=== PATIENT | female | born 1995 | race Two or more races ===

== ENCOUNTER 2017-04-30 21:48 | Emergency (ER) | payer SELFPAY ==
[~2017-04-30] VITALS: Ht 167.6 cm; Wt 76.0 kg
[2017-05-01 01:31] LABS: BASOPHILS % 0.3 % (0.0-2.0); EOSINOPHILS % 1.7 % (0.0-5.0); HEMATOCRIT. 32.2 % (36.0-48.0); LYMPHOCYTES % 30.4 % (20.0-50.0); MEAN CORPUSCULAR HEMOGLOBIN 29.8 pg (28.0-32.0); MEAN CORPUSCULAR VOLUME 86.9 fL (81.0-99.0); MEAN PLATELET VOLUME 8.5 fl (7.4-10.4); MONOCYTES % 6.1 % (2.0-8.0); NEUTROPHILS % 61.5 % (40.0-76.0); PLATELET 233 x1000/uL (130-400); RED CELL DISTRIBUTION WIDTH 13.4 % (11.6-14.6)
[2017-05-01 01:37] LABS: CHLORIDE 102 mEq/L (98-107)
[2017-05-01 01:53] LABS: CARBON DIOXIDE 22 mEq/L (21-32)
[2017-05-01 02:02] LABS: B-HCG QUANTITATIVE 63665 mIU/mL (<3)
[2017-05-01 03:55] VITALS: BP 115/70
== END 2017-05-01 03:49 | disposition home or self-care (01) ==
LOC: ER 22:50
DX: O20.0 Threatened abortion (principal); Z3A.11 11 weeks gestation of pregnancy; Z90.49 Acquired absence of other specified parts of digestive tract
CPT/HCPCS: 36415; 76801; 76817; 80048; 84702; 85025; 86850; 86900; 86901; 99285; Z7610

== ENCOUNTER 2018-01-05 19:20 | Inpatient (IN) | payer OTHER, MEDICAID ==
[~2018-01-05] VITALS: Ht 167.6 cm; Wt 74.8 kg
[2018-01-05] MEDS ORDERED: ACETAMINOPHEN 325MG TABLET PO STA (19:50)
[2018-01-05] MEDS ORDERED: MORPHINE SULFATE 4 MG/ML CPJ (NOT FOR IM USE) IV STA (19:50)
[2018-01-05] MEDS ORDERED: ONDANSETRON HCL 4MG/2ML VIAL IV STA (19:50)
[2018-01-05] MEDS ORDERED: SODIUM CHLORIDE 0.9% 1000ML BAG (SEPSIS BOLUS) IV ONE ×2 (20:00→21:00)
[2018-01-05 20:24] LABS: HEMATOCRIT. 33.5 % (36.0-48.0); HEMOGLOBIN. 11.2 g/dL (12.0-16.0); MEAN CORPUSCULAR HEMOGLOBIN 29.1 pg (28.0-32.0); MEAN CORPUSCULAR VOLUME 86.9 fL (81.0-99.0); MEAN PLATELET VOLUME 9.5 fl (7.4-10.4); PLATELET 240 x1000/uL (130-400); RED BLOOD CELL COUNT 3.86 mill/uL (4.2-5.4); RED CELL DISTRIBUTION WIDTH 13.2 % (11.6-14.6)
[2018-01-05 20:25] LABS: INR 1.1; PROTHROMBIN TIME 11.6 sec (9.4-11.6)
[2018-01-05 20:30] LABS: CHLORIDE 100 mEq/L (98-107)
[2018-01-05 20:35] LABS: B-HCG QUANTITATIVE < 1 mIU/mL (<3)
[2018-01-05 20:47] LABS: CLARITY URINE TURBID (CLEAR); COLOR URINE YELLOW (YELLOW); KETONES URINE TRACE (NEGATIVE); LEUKOCYTE ESTERASE URINE 2+ (NEGATIVE); NITRITE URINE NEGATIVE (NEGATIVE); OCCULT BLOOD URINE 3+ (NEGATIVE); PH URINE 5.5 (4.5-8.0); PROTEIN URINE 2+ (NEGATIVE); SPECIFIC GRAVITY URINE 1.014 (1.005-1.030); UROBILINOGEN URINE 0.2 E.U./dL (0.2-1.0)
[2018-01-05 21:00] LABS: PLATELET ESTIMATE NORMAL
[2018-01-05] MEDS ORDERED: PIPERACILLIN/TAZ 3.375G PREMIX 50 ML IV ONE (21:00)
[2018-01-05] MEDS ORDERED: VANCOMYCIN 1 G PREMIX 200 ML IV ONE (21:00)
[2018-01-05] MEDS ORDERED: IOHEXOL-300 100 ML BOTTLE ONE (22:27)
[2018-01-06] MEDS ORDERED: DIPHENHYDRAMINE 50MG/ML VIAL IV ONE
[2018-01-06] MEDS: ACETAMINOPHEN 325MG TABLET PO PRN ×3 (01:45→18:00)
[2018-01-06] MEDS: DEXT 5%/0.45% NACL KCL 40MEQ/L 1,000 ML IV SCH ×3 (03:41→18:08)
[2018-01-06 04:00] VITALS: BP 107/63
[2018-01-06] MEDS ORDERED: MAGNESIUM/ALUMINUM HYDROXIDE/SIMETHICONE 30ML UDC PO PRN (04:56)
[2018-01-06] MEDS ORDERED: DIPHENHYDRAMINE 50MG/ML VIAL IV PRN (04:56)
[2018-01-06] MEDS: MORPHINE SULFATE 4 MG/ML CPJ (NOT FOR IM USE) IV PRN ×2 (05:23→17:20)
[2018-01-06] MEDS ORDERED: GENTAMICIN SULFATE 120 MG in SODIUM CHLORIDE 0.9% 100 ML IV SCH (06:00)
[2018-01-06] MEDS ORDERED: CEFTRIAXONE 1 G PREMIX 50 ML IV SCH (06:00)
[2018-01-06] MEDS ORDERED: MAGNESIUM 2 G PREMIX 50 ML IV SCH (06:00)
[2018-01-06 07:19] VITALS: BP 86/46
[2018-01-06 07:24] VITALS: BP 90/49
[2018-01-06] MEDS: ONDANSETRON HCL 4MG/2ML VIAL IV PRN ×2 (09:57→17:41)
[2018-01-06 12:00] VITALS: BP 95/47
[2018-01-06 15:40] VITALS: BP 106/69
[2018-01-06] MEDS: GENTAMICIN SULFATE 160 MG in SODIUM CHLORIDE 0.9% 100 ML IV SCH (17:10)
[2018-01-06 20:00] VITALS: BP 99/74
[2018-01-07] VITALS (8 sets, daily range): BP systolic 89–119; BP diastolic 53–80
[2018-01-07] MEDS: MORPHINE SULFATE 4 MG/ML CPJ (NOT FOR IM USE) IV PRN (02:09)
[2018-01-07] MEDS: DEXT 5%/0.45% NACL KCL 40MEQ/L 1,000 ML IV SCH ×2 (02:25→18:02)
[2018-01-07] MEDS: GENTAMICIN SULFATE 160 MG in SODIUM CHLORIDE 0.9% 100 ML IV SCH (05:47)
[2018-01-07] MEDS ORDERED: CEFTRIAXONE 1 G PREMIX 50 ML IV SCH (06:00)
[2018-01-07 07:16] LABS: BASOPHILS % 0.2 % (0.0-2.0); EOSINOPHILS % 0.1 % (0.0-5.0); HEMATOCRIT. 28.7 % (36.0-48.0); HEMOGLOBIN. 9.7 g/dL (12.0-16.0); LYMPHOCYTES % 9.5 % (20.0-50.0); MEAN CORPUSCULAR HEMOGLOBIN 29.5 pg (28.0-32.0); MEAN CORPUSCULAR VOLUME 87.6 fL (81.0-99.0); MEAN PLATELET VOLUME 9.9 fl (7.4-10.4); MONOCYTES % 7.8 % (2.0-8.0); NEUTROPHILS % 82.4 % (40.0-76.0); PLATELET 238 x1000/uL (130-400); RED BLOOD CELL COUNT 3.28 mill/uL (4.2-5.4); RED CELL DISTRIBUTION WIDTH 13.6 % (11.6-14.6)
[2018-01-07 08:23] LABS: CHLORIDE 107 mEq/L (98-107)
[2018-01-07 08:56] LABS: PHOSPHORUS 0.6 mg/dL (2.5-4.9)
[2018-01-07] MEDS ORDERED: SODIUM PHOS,M-BASIC-D-BASIC 30 MM in DEXT 5% WATER 500 ML IV SCH (11:00)
[2018-01-07] MEDS: ACETAMINOPHEN 325MG TABLET PO PRN (15:13)
== END 2018-01-07 22:45 | disposition short-term general hospital (02) | DRG 871 ==
LOC: ER 19:31 → 8WST 22:59 → CANRESERV 23:31 → ENRESERV 23:31 → CANBEDREQ 01-06 00:20
PROVIDERS: ADMIT Internal Medicine; ATTEND Internal Medicine
DX: A41.9 Sepsis, unspecified organism (principal); E43 Unspecified severe protein-calorie malnutrition; N10 Acute pyelonephritis; R00.0 Tachycardia, unspecified; E87.6 Hypokalemia; E83.39 Other disorders of phosphorus metabolism; Z80.3 Family history of malignant neoplasm of breast; Z90.49 Acquired absence of other specified parts of digestive tract; Z68.26 Body mass index [BMI] 26.0-26.9, adult
CPT/HCPCS: 36415; 71045; 72146; 72148; 74177; 76830; 76856; 80048; 80051; 80053; 81003; 81025; 83605; 83690; 83735; 84100; 84702; 85025; 85610; 87040; 87077; 87086; 87186; 87493; 93005; 96361; 96365; 96367; 96375; 99291; J0696; J1200; J1580; J2270; J2405; J2543; J3370; J3475; J3490; J7030; J7050; J7060; Q9967

== ENCOUNTER 2021-09-24 08:21 | Emergency (ER) | payer OTHER ==
[~2021-09-24] VITALS: Ht 165.1 cm; Wt 74.0 kg
[2021-09-24] MEDS ORDERED: ONDANSETRON HCL 4MG/2ML INJ IV STA (08:42)
[2021-09-24] MEDS ORDERED: MORPHINE SULFATE 4 MG/ML CPJ (NOT FOR IM USE) IV STA (08:42)
[2021-09-24] MEDS ORDERED: LORAZEPAM 2MG/ML CPJ IV ONE (08:45)
[2021-09-24] MEDS ORDERED: SODIUM CHLORIDE 0.9% 1,000 ML IV ONE (08:45)
[2021-09-24 09:13] LABS: BASOPHILS % 0.4 % (0.0-2.0); EOSINOPHILS % 0.1 % (0.0-5.0); HEMOGLOBIN. 13.2 g/dL (12.0-16.0); LYMPHOCYTES % 10.2 % (20.0-50.0); MEAN CORPUSCULAR HEMOGLOBIN 29.1 pg (28.0-32.0); MEAN CORPUSCULAR VOLUME 88.4 fL (81.0-99.0); MEAN PLATELET VOLUME 8.3 fl (7.4-10.4); MONOCYTES % 1.8 % (2.0-8.0); NEUTROPHILS % 87.5 % (40.0-76.0); PLATELET 270 x1000/uL (130-400); RED BLOOD CELL COUNT 4.52 mill/uL (4.2-5.4)
[2021-09-24 09:19] LABS: CHLORIDE 111 mEq/L (98-107)
[2021-09-24 09:20] LABS: HCG SCREEN NEGATIVE
[2021-09-24 09:24] LABS: ETHANOL BLOOD 41 mg/dL
[2021-09-24 10:39] LABS: CLARITY URINE CLEAR (CLEAR); COLOR URINE YELLOW (YELLOW); KETONES URINE 2+ (NEGATIVE); LEUKOCYTE ESTERASE URINE NEGATIVE (NEGATIVE); NITRITE URINE NEGATIVE (NEGATIVE); OCCULT BLOOD URINE NEGATIVE (NEGATIVE); PH URINE 5.5 (4.5-8.0); PROTEIN URINE NEGATIVE (NEGATIVE); SPECIFIC GRAVITY URINE 1.022 (1.005-1.030); UROBILINOGEN URINE 0.2 E.U./dL (0.2-1.0)
[2021-09-24] MEDS ORDERED: ONDA4TAB11 PO (11:17)
[2021-09-24] MEDS ORDERED: OMEP20CA14 MT (11:17)
[2021-09-24 11:19] LABS: *AMPHETAMINES SCREEN URINE NEGATIVE (NEGATIVE); *BARBITURATES SCREEN URINE NEGATIVE (NEGATIVE); *BENZODIAZEPINES SCREEN URINE NEGATIVE (NEGATIVE); *COCAINE SCREEN URINE NEGATIVE (NEGATIVE); METHADONE URINE SCREEN NEGATIVE (NEGATIVE)
[2021-09-24 11:22] LABS: PHENCYCLIDINE URINE SCREEN NEGATIVE (NEGATIVE)
[2021-09-24 11:25] LABS: OPIATES URINE SCREEN PRESUMTIVE POSITIVE (NEGATIVE)
[2021-09-24 11:26] LABS: CANNABINOID URINE SCREEN PRESUMTIVE POSITIVE (NEGATIVE)
[2021-09-24 12:40] VITALS: BP 100/54
== END 2021-09-24 12:54 | disposition home or self-care (01) ==
LOC: ER 08:43 → CANBEDREQ 11:54 → ER 12:54
DX: R10.13 Epigastric pain (principal); F10.129 Alcohol abuse with intoxication, unspecified; R11.10 Vomiting, unspecified; Y90.2 Blood alcohol level of 40-59 mg/100 ml; Z90.49 Acquired absence of other specified parts of digestive tract; Z88.0 Allergy status to penicillin
CPT/HCPCS: 36415; 71045; 80053; 80305; 80320; 81003; 83690; 84703; 85025; 93005; 96361; 96374; 96375; 99285; J2270; J2405; J7030; G0480

== ENCOUNTER 2024-07-28 07:53 | Emergency (ER) | payer MEDICAID, OTHER ==
[~2024-07-28] VITALS: Ht 165.1 cm; Wt 70.0 kg
[~2024-07-28 07:53] MED LIST: OMEP20CA14 MT; ONDA-239 PO
[2024-07-28 07:56] VITALS: PULSE 104
[2024-07-28 08:02] VITALS: BP 138/84; RESP 18; TEMP 98.9; O2SAT 100
[2024-07-28] MEDS ORDERED: AMOX1TAB16 MT (08:34)
[2024-07-28] MEDS ORDERED: IBUPROFEN 400MG TABLET PO ONE (08:45)
== END 2024-07-28 09:43 | disposition home or self-care (01) ==
LOC: ER 08:07
DX: J02.9 Acute pharyngitis, unspecified (principal); Z88.0 Allergy status to penicillin; Z90.49 Acquired absence of other specified parts of digestive tract; Z79.899 Other long term (current) drug therapy
CPT/HCPCS: 99283

== ENCOUNTER 2024-08-18 12:47 | Emergency (ER) | payer SELFPAY ==
[~2024-08-18] VITALS: Ht 167.6 cm; Wt 82.0 kg
[~2024-08-18 12:47] MED LIST changes: +AMOX1TAB16 MT
[2024-08-18 12:52] VITALS: BP 157/120; PULSE 87; RESP 16; TEMP 98.3; O2SAT 99
[2024-08-18 14:39] LABS: CLARITY URINE TURBID (CLEAR); COLOR URINE YELLOW (YELLOW); GLUCOSE URINE NEGATIVE (NEGATIVE); KETONES URINE TRACE (NEGATIVE); LEUKOCYTE ESTERASE URINE 3+ (NEGATIVE); NITRITE URINE POSITIVE (NEGATIVE); OCCULT BLOOD URINE 3+ (NEGATIVE); PROTEIN URINE 2+ (NEGATIVE)
[2024-08-18] MEDS ORDERED: CEPH500C2 MT (14:40)
[2024-08-18] MEDS ORDERED: CLAR-44 MT (14:54)
[2024-08-18 14:59] LABS: BACTERIA URINE 2+; SQUAMOUS EPITHELIAL CELL URINE 2+ /lpf (RARE/1+); WBC URINE TNTC /hpf (0-2); YEAST URINE NONE SEEN
== END 2024-08-18 15:40 | disposition home or self-care (01) ==
LOC: ER 12:59
DX: N39.0 Urinary tract infection, site not specified (principal); Z90.49 Acquired absence of other specified parts of digestive tract; Z79.899 Other long term (current) drug therapy; Z88.0 Allergy status to penicillin
CPT/HCPCS: 81003; 87077; 87186; 99283